=== PATIENT | female | born 1950 | race Caucasian/White ===

== ENCOUNTER 2019-04-01 17:42 | Inpatient (IN) | payer MEDICARE ==
[~2019-04-01] VITALS: Ht 162.6 cm; Wt 68.0 kg
[~2019-04-01 17:42] MED LIST: ASPI-496 PO; DIAZ2TAB3 PO; FAMO40TA61 PO; GINKO; VIT D PO; [UNRECOGNIZED DRUG - OTHER]; [UNRECOGNIZED DRUG - OTHER] PO
--- NOTE | 2019-04-01 18:07 | NUR ---
TO ROOM FROM LOBBY .NAD.
--- NOTE | 2019-04-01 18:08 | NUR ---
pt to room from lobby, changed into gown, responds approp to staff, NAD, comfort measures provided, at BS, call light within reach.
[2019-04-01 18:22] LABS: BASOPHILS # (AUTO) 0.01 x10^3/uL (0-0.1); BASOPHILS % (AUTO) 0 % (0-1); EOSINOPHILS % (AUTO) 0 % (1-7); LYMPHOCYTES # (AUTO) 0.15 x10^3/uL (1-3.4); LYMPHOCYTES % (AUTO) 2 % (22-44); MD NO; MEAN CORPUSCULAR HEMOGLOBIN 29.1 pg (27.0-34.8); MEAN CORPUSCULAR HGB CONC 32.4 g/dL (32.4-35.8); MEAN CORPUSCULAR VOLUME 89.6 fL (80-100); MEAN PLATELET VOLUME 8.2 fL (7.4-10.4); MONOCYTES # (AUTO) 0.31 x10^3/uL (0.2-0.8); MONOCYTES % (AUTO) 4 % (2-9); NEUTROPHILS % (AUTO) 94 % (42-75); PLATELET COUNT 204 x10^3/uL (130-400); RED BLOOD COUNT 4.95 x10^6/uL (3.82-5.3); RED CELL DISTRIBUTION WIDTH 13.8 % (9.6-15.2)
[2019-04-01] MEDS ORDERED: PROMETHAZINE 25 MG/ML, 1ML ONE (18:26)
[2019-04-01] MEDS ORDERED: PROMETHAZINE 25 MG/ML, 1ML IM ONE (18:30)
[2019-04-01] MEDS ORDERED: SODIUM CHLORIDE 0.9% 1,000ML IVBOLUS ONE ×2 (18:30→20:30)
[2019-04-01 18:35] LABS: ALANINE AMINOTRANSFERASE 463 U/L (12-78); ALBUMIN 3.7 g/dL (3.4-5.0); ANION GAP 8 mmol/L (5-15); CALCIUM 8.2 mg/dL (8.5-10.1); CHLORIDE 110 mmol/L (98-107)
[2019-04-01 18:37] LABS: ALKALINE PHOSPHATASE 151 U/L (45-117); BILIRUBIN,TOTAL 0.9 mg/dL (0.2-1.0); TOTAL PROTEIN 7.1 g/dL (6.4-8.2)
--- NOTE | 2019-04-01 18:49 | NUR ---
BEDSIDE REPORT GIVEN FROM DAVID SOUSA. NO ACUTE DISTRESS NOTED. PT RESTING IN ROOM. CALL LIGHT IN PLACE. WILL CONTINUE TO MONITOR.
--- NOTE | 2019-04-01 19:48 | NUR ---
PT HAS AMBULATED TO BATHROOM. NO ACUTE DISTRESS NOTED. PT NOW RESTING IN ROOM. FAMILY AT BEDSIDE. VS STABLE. WILL CONTINUE TO MONITOR.
--- NOTE | 2019-04-01 20:13 | NUR ---
PT IN US
[2019-04-01] MEDS ORDERED: FAMOTIDINE 20 MG/2 ML IVP ONE (20:30)
[2019-04-01] MEDS ORDERED: FAMOTIDINE 20 MG/2 ML ONE (20:44)
[2019-04-01 21:12] LABS: INTERNATIONAL NORMALIZED RATIO 0.92 (0.93-1.1); PROTHROMBIN TIME 9.7 Seconds (9.6-11.5)
--- NOTE | 2019-04-01 21:21 | NUR ---
REPORT GIVEN TO DAVID ROBLERO
[2019-04-01] MEDS ORDERED: SODIUM CHLORIDE FLUSH 10ML SYR IVF PRN (21:30)
[2019-04-01] MEDS ORDERED: ONDANSETRON 2MG/ML, 2ML ONE (22:19)
[2019-04-01] MEDS: ONDANSETRON 2MG/ML, 2ML IVPush PRN (22:21)
[2019-04-01] MEDS ORDERED: ONDANSETRON 2MG/ML, 2ML IVPush PRN (22:30)
[2019-04-01] MEDS ORDERED: PROMETHAZINE 25 MG/ML, 1ML IM PRN (22:30)
[2019-04-01] MEDS ORDERED: KETOROLAC 30 MG/1 ML IV PRN (22:30)
[2019-04-01] MEDS ORDERED: METOCLOPRAMIDE 5 MG/ML, 2ML IVPush PRN (22:30)
--- NOTE | 2019-04-01 22:30 | NUR ---
PT MEDICATED FOR COMPLAINT OF NAUSEA. POC DISCUSSED. PT GIVEN MULTIPLE BLANKETS PER REQUEST. PT DENIES FURTHER NEEDS AT THIS TIME.
--- NOTE | 2019-04-01 22:53 | NUR ---
JEAN CARLOS CALLED TO [facility]. AWAITING TRANSPORT AT THIS TIME.
[2019-04-01] MEDS: SODIUM CHLORIDE 0.9% 1,000 ML IV SCH (23:18)
[2019-04-01 23:33] VITALS: BP 111/68
[2019-04-02 02:19] VITALS: BP 130/70
[2019-04-02 05:38] LABS: CHLORIDE 118 mmol/L (98-107)
[2019-04-02 05:41] LABS: BASOPHILS # (AUTO) 0.03 x10^3/uL (0-0.1); BASOPHILS % (AUTO) 1 % (0-1); EOSINOPHILS # (AUTO) 0.04 x10^3/uL (0-0.4); EOSINOPHILS % (AUTO) 1 % (1-7); LYMPHOCYTES # (AUTO) 0.36 x10^3/uL (1-3.4); LYMPHOCYTES % (AUTO) 8 % (22-44); MD NO; MEAN CORPUSCULAR HEMOGLOBIN 28.9 pg (27.0-34.8); MEAN CORPUSCULAR HGB CONC 32.3 g/dL (32.4-35.8); MEAN CORPUSCULAR VOLUME 89.5 fL (80-100); MEAN PLATELET VOLUME 8.6 fL (7.4-10.4); MONOCYTES % (AUTO) 9 % (2-9); NEUTROPHILS # (AUTO) 3.65 x10^3/uL (1.8-6.8); NEUTROPHILS % (AUTO) 82 % (42-75); PLATELET COUNT 170 x10^3/uL (130-400); RED BLOOD COUNT 4.24 x10^6/uL (3.82-5.3); RED CELL DISTRIBUTION WIDTH 14.1 % (9.6-15.2)
[2019-04-02 05:51] LABS: % IRON SATURATION 17 % (20-55); ALANINE AMINOTRANSFERASE 301 U/L (12-78); ALBUMIN 2.9 g/dL (3.4-5.0); ALKALINE PHOSPHATASE 138 U/L (45-117); ANION GAP 6 mmol/L (5-15); BILIRUBIN,TOTAL 0.6 mg/dL (0.2-1.0); CALCIUM 7.4 mg/dL (8.5-10.1); CREATININE 0.66 mg/dL (0.55-1.02); IRON LEVEL 33 mcg/dL (50-170); TOTAL IRON BINDING CAPACITY 197 mcg/dL (250-450); TOTAL PROTEIN 5.6 g/dL (6.4-8.2); TRANSFERRIN 162 mg/dL (200-360)
[2019-04-02] MEDS: SODIUM CHLORIDE 0.9% 1,000 ML IV SCH (06:45)
[2019-04-02] MEDS: ONDANSETRON 2MG/ML, 2ML IVPush PRN (06:51)
[2019-04-02 10:06] VITALS: BP 109/61
[2019-04-02] MEDS ORDERED: ONDA4TAB13 SL (14:02)
[2019-04-02 14:23] VITALS: BP 109/62
== END 2019-04-02 15:54 | disposition home or self-care (01) | DRG 392 ==
LOC: ED 21:03 → EDIP 21:08 → 4NOR 23:00 → DCLOUNGE 04-02 15:45
PROVIDERS: ADMIT Internal Medicine; ATTEND Internal Medicine
DX: K52.9 Noninfective gastroenteritis and colitis, unspecified (principal); B17.9 Acute viral hepatitis, unspecified; E86.0 Dehydration; M19.90 Unspecified osteoarthritis, unspecified site; M81.0 Age-related osteoporosis without current pathological fracture; Z88.6 Allergy status to analgesic agent; Z88.8 Allergy status to other drugs, medicaments and biological substances; Z87.891 Personal history of nicotine dependence; Z90.49 Acquired absence of other specified parts of digestive tract
CPT/HCPCS: 36415; 76700; 80053; 80074; 80307; 82728; 83540; 83550; 83690; 84466; 85025; 85610; 85730; 96361; 96372; 96374; G0378; J2405; J2550; J2765; J3490; J7030